=== PATIENT | female | born 1955 | race Caucasian/White ===

== ENCOUNTER → 2022-05-03 11:28 | Outpatient (CLI) | payer MEDICARE, OTHER, SELFPAY ==
--- NOTE | ~2022-05-03 | XR_ITS ---
EXAMINATION: XR ribs RT 2V w CXR 2V INDICATION: Right-sided chest pain TECHNIQUE: Frontal and lateral views of the chest and 3 views of the right ribs were obtained. COMPARISON: 01/17/2018 FINDINGS: Cardiomegaly is noted. There are chronic opacities of the right lung base. No pleural effus ion or pneumothorax. Changes of left shoulder arthroplasty are noted. Ventriculoperitoneal shunt cath eter tubing courses over the right anterior chest wall. There is moderate thoracic spondylosis. No di splaced rib fracture is identified. IMPRESSION: 1. No evidence of displaced rib fracture. 2. Cardiomegaly. Reviewed, dictated and finalized at location B.
== END ==
PROVIDERS: PCP Physician Assistant; Visit Provider Physician Assistant
DX: R07.81 Pleurodynia (principal); I51.7 Cardiomegaly
CPT/HCPCS: 71046; 71100